=== PATIENT | male | born 1950 | race Caucasian/White ===

== ENCOUNTER 2016-05-23 07:24 | Day surgery (SDC) | payer MEDICARE ==
[~2016-05-23 07:24] MED LIST: ACETAMINOPHEN WITH CODEINE 1 EACH TABLET PO PRN; GENTAMICIN SULFATE 80 MG in DEXTROSE 5 % IN WATER 100 ML IV PRN; RINGERS SOLUTION,LACTATED 1,000 ML IV PRN; metroNIDAZOLE/SODIUM CHLORIDE 100 ML IV PRN
--- OUTSIDE RECORDS SUMMARY | 2016-05-23 07:29 | XMS REPORT | Continuity of Care Document ---
:1950 Author Organization [facility] ([facility]) Address [address] [place] [address] Phone [phone] Care Team Providers Name Role Phone [facility] Primary Care Provider [phone] Source Comments This disclosure is being made pursuant to the Care Everywhere program, applicable federal and state laws, and may not contain all informaitonavailable regarding this patient.[facility] ([facility]) Active Allergies and Adverse Reactions No Known Allergies Current Medications Prescription Sig. Disp. Refills Start Date End Date Status albuterol 90 Use 2 Puffs by 1 Inhaler 6 10/27/2012 Active mcg/Actuation inhalation every 6 inhaler hours as needed. Indications: BRONCHOSPASM PREVENTION beclomethasone Use 1 Puff by 1 Inhaler 5 10/27/2012 Active (QVAR) 80 inhalation 2 times mcg/Actuation daily. Indications: inhaler bronchospasm traMADol 50 mg Take 1 Tab by mouth 4 120 Tab 3 10/27/2012 Active tablet times daily as needed. Indications: PAIN famotidine 40 mg Take 1 Tab by mouth 60 Tab 6 10/27/2012 Active tablet at bedtime. Indications: REFLUX ESOPHAGITIS lisinopril 20 mg Take 1.5 Tabs by 90 Tab 3 10/27/2012 Active tablet mouth daily. Indications: HYPERTENSION cyclobenzaprine 10 Take 1 Tab by mouth 60 Tab 1 10/27/2012 Active mg tablet daily as needed. Indications: chronic LBP HYDROcodone-acetamin Take 1-2 Tabs by 20 Tab 0 11/23/2012 Active ophen 5-325 mg per mouth every 4 hours tablet as needed. Indications: PAIN traZODone PO Take by mouth. Active finasteride 5 mg Take 1 Tab by mouth 30 Tab 11 03/31/2013 Active tablet at bedtime. Indications: BENIGN PROSTATIC HYPERTROPHY omeprazole 40 mg Take 1 Cap by mouth 30 Cap 3 04/01/2013 Active extended release daily. Indications: capsule GASTROESOPHAGEAL REFLUX tamsulosin 0.4 mg ER Take 1 Cap by mouth 30 Cap 11 04/17/2014 Active capsule at bedtime. Indications: UROLITHIASIS finasteride 5 mg Take 1 Tab (5 mg 30 Tab 11 08/15/2014 Active tablet total) by mouth daily Active Problems Problem Noted Date Elevated PSA 03/31/2013 BPH (benign prostatic hypertrophy) 03/31/2013 Elevated prostate specific antigen (PSA) 11/01/2012 Ladd's esophagus with high grade dysplasia 11/10/2011 GERD (gastroesophageal reflux disease) 08/18/2011 Constipation 08/18/2011 Chronic low back pain 08/18/2011 Essential hypertension 06/10/2011 Tobacco abuse 06/10/2011 Cellulitis of foot 06/08/2011 Obesity (BMI 30-39.9) 06/08/2011 Immunizations Name Dates Previously Given Next Due Influenza, PF 11/20/2011 Tdap 06/18/2011 Social History Tobacco Use Types Packs/Day Years Used Date Current Every Day Smoker Cigarettes 1 20 Smokeless Tobacco: Former User Chew Quit: 06/17/2006 Tobacco Cessation:Counseling Given: Yes Comments:chewed 1/4 can a day x 30yrs Alcohol Use Drinks/Week oz/Week Comments No Last Filed Vital Signs Vital Sign Reading Time Taken Blood Pressure 126/83 06/19/2014 11:07 AM CDT Pulse 68 06/19/2014 10:13 AM CDT Temperature 36.5 C (97.7 F) 06/19/2014 10:13 AM CDT Respiratory Rate 18 06/19/2014 11:07 AM CDT Height 1.76 m (5' 9.29") 11/01/2012 9:23 AM CDT Weight 103.511 kg (228 lb 3.2 oz) 11/01/2012 9:23 AM CDT Body Mass Index 33.42 11/01/2012 9:23 AM CDT Oxygen Saturation 95% 06/19/2014 11:07 AM CDT Plan of Care Patient Goal Type Goal Lifestyle Quit smoking Health Maintenance Due Date Last Done Comments HCV Screening 1950 Hepatitis B Vaccine (1 of 3 - 1950 Primary Series) FOBT Colon Cancer Screening 07/14/1999 Sigmoidoscopy Colon Cancer 07/14/1999 Screening Zoster Vaccine 2009 Pneumococcal Vaccine (1 of 2 2014 - PCV13) Prostate Cancer Screening 08/15/2014 08/15/2013, Additional history exists 03/31/2013, 11/01/2012 Influenza Vaccine: Seasonal 09/17/2015 11/20/2011 (#1) Lipid Disorder Screening 10/27/2017 10/27/2012, 06/18/2011 Td Vaccine 06/17/2021 06/18/2011 Colonoscopy 10/20/2021 10/21/2011 Tdap Vaccine Completed 06/18/2011 Results from Last 3 Months Not on file
--- OUTSIDE RECORDS SUMMARY | 2016-05-23 07:30 | XMS REPORT | Summary of Care ---
:1950 Author Organization [facility] Address [address] [place] [phone]- Care Team Providers Name Role Phone Giles Moyer Primary Care Physician Encounter Date(s): 04/14/16 - 04/14/[address] [id number] Discharge Disposition: 01 Discharged to Home or Self Care Attending Physician: Flako Dominguez NP Admitting Physician: Flako Dominguez NP Vital Signs No data available for this section Problem List Condition Effective Dates Status Health Status Informant Benign hypertension(Confirmed) Active Lumbar radiculopathy(Confirmed) Active Lumbosacral spine Active instability(Confirmed) Lumbar spinal stenosis(Confirmed) Active Spondylolisthesis(Confirmed) Active Allergies, Adverse Reactions, Alerts No Known Medication Allergies Medications amLODIPine 10 mg oral tablet 1 tab(s), Oral, Daily, 0 Refill(s), Start Date: 12/05/15 14:18:00 CDT Start Date: 12/05/15 Status: Orderedatorvastatin 20 mg oral tablet 1 tab(s), Oral, Daily, 0 Refill(s), Start Date: 12/05/15 14:18:00 CDT Start Date: 12/05/15 Status: Orderedfinasteride 5 mg oral tablet 1 tab(s), Oral, Daily, # 30 tab(s), 0 Refill(s), Start Date: 02/06/16 13:36:00 COPYRIGHT MANAGER Start Date: 02/06/16 Status: Orderedgabapentin 300 mg oral capsule 1 cap(s), Oral, TID, # 90 cap(s), 0 Refill(s), Start Date: 12/05/15 15:21:00 CDT , Pharmacy: [place], [place] Start Date: 12/05/15 Stop Date: 02/22/16 Status: CompletedHYDROcodone-acetaminophen 5mg-325mg oral tablet 1 tab(s), Oral, q6hr interval, 0 Refill(s) Start Date: 12/05/15 Status: Orderedlisinopril 40 mg oral tablet 1 tab(s), Oral, Daily, 0 Refill(s), Start Date: 12/05/15 14:19:00 CDT Start Date: 12/05/15 Status: Orderedomeprazole 20 mg oral delayed release capsule 1 cap(s), Oral, Daily, 0 Refill(s), Start Date: 12/05/15 14:18:00 CDT Start Date: 12/05/15 Status: Orderedoxycodone-acetaminophen 5mg-325mg oral tablet See Instructions, 1 tab(s) Oral q4-6hr interval Max 7 per day, # 90 tab(s), 0 Refill(s), Start Date: 04/09/16 9:33:00 COPYRIGHT MANAGER, Pharmacy: [place], [place] Special Instructions: 1 tab(s) Oral q4-6hr interval Max 7 per day Start Date: 04/09/16 Status: Orderedoxycodone-acetaminophen 5mg-325mg oral tablet See Instructions, 1 tab(s) Oral q4-6hr interval Max 7 per day, # 90 tab(s), 0 Refill(s), Start Date: 03/28/16 8:45:00 COPYRIGHT MANAGER, Pharmacy: [place], [place] Special Instructions: 1 tab(s) Oral q4-6hr interval Max 7 per day Start Date: 03/28/16 Stop Date: 04/09/16 Status: Completed Results Patient Viewable Results Most recent to oldest [Reference Range]: 1 Sed Rate [0-20 mm/hr] 42 mm/hr *HI* (04/14/16 11:43 AM) C Reactive Protein [0.0-0.4 mg/dL] 1.2 mg/dL *HI* (04/14/16 11:43 AM) Immunizations No data available for this section Procedures Procedure Date Related Diagnosis Body Site Fusion Lumbar Anterior and Posterior (SCIP)1 03/25/16 Colonoscopy EGD Teeth Extraction 1auto-populated from documented surgical case Social History No data available for this section Assessment and Plan No data available for this section
--- OUTSIDE RECORDS SUMMARY | 2016-05-23 07:30 | XMS REPORT | Summary of Care ---
:1950 Author Organization [facility] Address [address] [place] [address] Care Team Providers Name Role Phone Giles Moyer Primary Care Physician Encounter Date(s): 04/14/16 - 04/14/16 [facility] [address]aria Gonzalez, [address] [place], [place] [address] Discharge Disposition: 01 Discharged to Home or Self Care Attending Physician: Flako Dominguez NP Referring Physician: Luciano Cyr MD Vital Signs Most recent to oldest [Reference Range]: 1 Peripheral Pulse Rate [60-100 bpm] 71 bpm (04/14/16 11:07 AM) Blood Pressure [90-130/60-90 mmHg] 164/96mmHg *HI* (04/14/16 11:07 AM) Mean Arterial Pressure, Cuff 119 mmHg (04/14/16 11:07 AM) Most recent to oldest [Reference Range]: 1 Height/Length Measured 175.8 cm (04/14/16 11:07 AM) Weight Dosing 101.50 kg1 (04/14/16 11:19 AM) Weight Measured 101.5 kg (04/14/16 11:07 AM) BSA Measured 2.17 m2 (04/14/16 11:07 AM) Body Mass Index Measured 32.84 kg/m2 (04/14/16 11:07 AM) 1Result Comment: This result was because the dosing weight was either not entered or it is>30 days old. This result is based off: Weight Measured April 14, 2016 11:07:00 ENVIRONMENTAL SERVICES SPECIALIST by Bong Ortega Technical Sales Advisor Problem List Condition Effective Dates Status Health [...] tab(s), 0 Refill(s), Start Date: 02/06/16 13:36:00 ENVIRONMENTAL SERVICES SPECIALIST Start Date: 02/06/16 Status: Orderedgabapentin 300 mg oral capsule 1 cap(s), Oral, TID, # 90 cap(s), 0 Refill(s), Start Date: 12/05/15 15:21:00 CDT , Pharmacy: [place], [place] Start Date: 12/05/15 Stop Date: 02/22/16 [...] tab(s), 0 Refill(s), Start Date: 04/09/16 9:33:00 ENVIRONMENTAL SERVICES SPECIALIST, Pharmacy: [place], [place] Special Instructions: 1 tab(s) Oral q4-6hr interval Max 7 per day Start Date: 04/09/16 Status: Orderedoxycodone-acetaminophen 5mg-325mg oral tablet See Instructions, 1 tab(s) Oral q4-6hr interval Max 7 per day, # 90 tab(s), 0 Refill(s), Start Date: 03/28/16 8:45:00 ENVIRONMENTAL SERVICES SPECIALIST, Pharmacy: [facility] [place], [place] Special Instructions: 1 tab(s) Oral q4-6hr interval Max 7 per day Start Date: 03/28/16 Stop Date: 04/09/16 Status: Completed Results No data available for this section Immunizations No data available for this section Procedures Procedure Date Related Diagnosis Body Site Fusion Lumbar Anterior and Posterior (SCIP)1 03/25/16 Colonoscopy EGD Teeth Extraction 1auto-populated from documented surgical case Social History No data available for this section Assessment and Plan No data available for this section
--- OUTSIDE RECORDS SUMMARY | 2016-05-23 07:30 | XMS REPORT | Summary of Care ---
:1950 Author Organization [facility] Address [address] [place] [phone]- Care Team Providers Name Role Phone Giles Moyer Primary Care Physician Encounter Date(s): 03/13/16 - 03/13/[address] [address]- [facility] Discharge Disposition: 01 Discharged to Home or Self Care Attending Physician: Luciano Cyr MD Admitting Physician: Luciano Cyr MD Vital Signs Most recent to oldest [Reference Range]: 1 Height/Length Estimated 175.8 cm (03/10/16 2:23 PM) Weight Estimated 97.5 kg (03/10/16 2:23 PM) Problem List Condition Effective Dates Status Health [...] tab(s), 0 Refill(s), Start Date: 02/06/16 13:36:00 SLOT SHIFT SUPERVISOR Start Date: 02/06/16 Status: Orderedgabapentin 300 mg oral capsule 1 cap(s), Oral, TID, # 90 cap(s), 0 Refill(s), Start Date: 12/05/15 15:21:00 CDT , Pharmacy: [place], [place] Start Date: 12/05/15 Stop Date: 02/22/16 [...] 12/05/15 14:18:00 CDT Start Date: 12/05/15 Status: Ordered Results Patient Viewable Results Most recent to oldest [Reference Range]: 1 WBC [4.8-10.8 thou/mm3] 9.3 thou/mm3 (03/13/16 8:15 AM) RBC [4.60-6.00 Mil/mm3] 4.89 Mil/mm3 (03/13/16 8:15 AM) Hgb [14.0-18.0 g/dL] 15.3 g/dL (03/13/16 8:15 AM) Hct [42.0-52.0 %] 43.7 % (03/13/16 8:15 AM) MCV [80.0-94.0 fL] 89.4 fL (03/13/16 8:15 AM) MCH [25.0-38.0 pg/cell] 31.3 pg/cell (03/13/16 8:15 AM) MCHC [31.0-37.0 g/dL] 35.0 g/dL (03/13/16 8:15 AM) RDW [1.0-48.0 fL] 44.7 fL (03/13/16 8:15 AM) Platelet [130-400 thou/mm3] 312 thou/mm3 (03/13/16 8:15 AM) Neutrophils % Auto [50.0-75.0 %] 59.8 % (03/13/16 8:15 AM) Immature Granulocyte Auto [0.1-2.0 %] 0.2 % (03/13/16 8:15 AM) Lymphocytes % Auto [15.0-41.0 %] 29.6 % (03/13/16 8:15 AM) Monocytes % Auto [2.0-10.0 %] 8.1 % (03/13/16 8:15 AM) Eosinophils % Auto [0.0-6.0 %] 2.1 % (03/13/16 8:15 AM) Basophil % Auto [0.0-1.0 %] 0.2 % (03/13/16 8:15 AM) Neutrophils Absolute [1.5-5.9 thou/mm3] 5.6 thou/mm3 (03/13/16 8:15 AM) Immature Gran Absolute [0.01-0.03 thou/mm3] 0.02 thou/mm3 (03/13/16 8:15 AM) Lymphocytes Absolute [1.5-4.0 thou/mm3] 2.8 thou/mm3 (03/13/16 8:15 AM) Monocytes Absolute [0.0-0.9 thou/mm3] 0.8 thou/mm3 (03/13/16 8:15 AM) Eosinophil Absolute [0.0-0.7 thou/mm3] 0.2 thou/mm3 (03/13/16 8:15 AM) Basophil Absolute [0.0-0.2 thou/mm3] 0.0 thou/mm3 (03/13/16 8:15 AM) Sodium Lvl [135-144 mEq/L] 143 mEq/L (03/13/16 8:15 AM) Potassium Lvl [3.3-4.8 mEq/L] 4.2 mEq/L (03/13/16 8:15 AM) Chloride Lvl [98-107 mEq/L] 103 mEq/L (03/13/16 8:15 AM) Bicarbonate Lvl [22-30 mmol/L] 28 mmol/L (03/13/16 8:15 AM) Anion Gap [10.0-20.0] 16.2 (03/13/16 8:15 AM) Glucose Lvl [70-108 mg/dL] 94 mg/dL (03/13/16 8:15 AM) BUN [7-21 mg/dL] 18 mg/dL (03/13/16 8:15 AM) Creatinine Lvl [0.50-1.20 mg/dL] 0.79 mg/dL (03/13/16 8:15 AM) BUN/Creat Ratio 22.8 *NA* (03/13/16 8:15 AM) eGFR AA [>=60] >60 (03/13/16 8:15 AM) eGFR MARIA E [>=60] >60 (03/13/16 8:15 AM) Calcium Lvl [8.6-10.2 mg/dL] 9.0 mg/dL (03/13/16 8:15 AM) Total Protein [6.4-8.3 g/dL] 6.8 g/dL (03/13/16 8:15 AM) Albumin Lvl [3.5-5.2 g/dL] 4.3 g/dL (03/13/16 8:15 AM) Globulin 2.5 *NA* (03/13/16 8:15 AM) A/G Ratio [0.9-1.8] 1.7 (03/13/16 8:15 AM) Bilirubin Total [0.1-1.0 mg/dL] 1.2 mg/dL *HI* (03/13/16 8:15 AM) Alkaline Phosphatase [39-129 unit/L] 46 unit/L (03/13/16 8:15 AM) AST [0-39 unit/L] 19 unit/L (03/13/16 8:15 AM) ALT [0-40 unit/L] 17 unit/L (03/13/16 8:15 AM) Estimated Creatinine Clearance 109.45 mL/min (03/13/16 8:54 AM) ABO/Rh A POS *Unknown* (03/13/16 8:15 AM) Antibody Screen Negative ABSC (03/13/16 8:15 AM) Microbiology Reports TEST:MRSA Screen STATUS:Auth (Verified) BODY SITE: SOURCE:Nares COLLECTED DATE/TIME:03/13/16 7:20 AMFINAL REPORTNegative for MRSA by PCR Immunizations No data available for this section Procedures Procedure Date Related Diagnosis Body Site Colonoscopy EGD Teeth Extraction Social History No data available for this section Assessment and Plan No data available for this section
--- OUTSIDE RECORDS SUMMARY | 2016-05-23 07:30 | XMS REPORT | Summary of Care ---
:1950 Author Organization [facility] Address [facility] [place] [address]- Care Team Providers Name Role Phone Giles Moyer Primary Care Physician Encounter Date(s): 03/25/16 - 03/28/16 [facility] [address] [place] [phone] [facility] [place] Discharge Diagnosis: Lumbosacral spine instability Discharge Diagnosis: Lumbar spinal stenosis Discharge Disposition: 01 Discharged to Home or Self Care Attending Physician: Luciano Cyr MD Admitting Physician: Luciano Cyr MD Vital Signs Most recent to oldest 1 2 3 [Reference Range]: Temperature Temporal Artery 36.6 DegC 36.5 DegC 36.8 DegC [36-38 DegC] (03/28/16 12:00 PM) (03/28/16 8:00 AM) (03/28/16 4:00 AM) Apical Heart Rate [60-100 73 bpm 81 bpm 82 bpm bpm] (03/27/16 7:25 AM) (03/26/16 11:00 AM) (03/26/16 8:00 AM) Heart Rate Monitored [60-100 82 bpm 88 bpm 82 bpm bpm] (03/28/16 12:00 PM) (03/28/16 8:00 AM) (03/28/16 4:00 AM) Respiratory Rate [12-20 18 br/min 16 br/min 18 br/min br/min] (03/28/16 12:00 PM) (03/28/16 11:57 AM) (03/28/16 10:29 AM) SpO2 99 % 100 % 96 % (03/28/16 12:00 PM) (03/28/16 8:00 AM) (03/28/16 4:00 AM) SpO2 Location Right hand Right hand Right hand (03/28/16 12:00 PM) (03/28/16 8:00 AM) (03/28/16 4:00 AM) Blood Pressure [90-130/60-90 122/68mmHg 132/59mmHg mmHg] (03/27/16 7:25 AM) *HI* (03/26/16 8:00 AM) Mean Arterial Pressure, Cuff 83 mmHg (03/26/16 8:00 AM) Blood Pressure [90-130/60-90 111/67mmHg 99/65mmHg 146/32bkGu0 mmHg] (03/28/16 12:00 PM) (03/28/16 8:00 AM) *HI* (03/28/16 4:00 AM) Blood Pressure Location Right arm Right arm Right arm (03/28/16 12:00 PM) (03/28/16 8:00 AM) (03/28/16 4:00 AM) Most recent to oldest [Reference Range]: 1 2 3 Height/Length Measured 175.8 cm 175.8 cm (03/25/16 1:00 PM) (03/25/16 6:03 AM) Weight Dosing 101.5 kg 101.5 kg (03/25/16 1:00 PM) (03/25/16 6:03 AM) Weight Measured 101.5 kg 101.5 kg (03/25/16 1:00 PM) (03/25/16 6:03 AM) BSA Measured 2.17 m2 2.17 m2 (03/25/16 1:00 PM) (03/25/16 6:03 AM) Body Mass Index Measured 32.84 kg/m2 32.84 kg/m2 (03/25/16 1:00 PM) (03/25/16 6:03 AM) 1Result Comment: notfiied Soledad Problem List Condition Effective Dates Status Health [...] tab(s), 0 Refill(s), Start Date: 02/06/16 13:36:00 TRANSMISSION SUPERVISOR Start Date: 02/06/16 Status: Orderedgabapentin 300 mg oral capsule 1 cap(s), Oral, TID, # 90 cap(s), 0 Refill(s), Start Date: 12/05/15 15:21:00 CDT , Pharmacy: [place], [place] Start Date: 12/05/15 Stop Date: 02/22/16 [...] tab(s), 0 Refill(s), Start Date: 03/28/16 8:45:00 TRANSMISSION SUPERVISOR, Pharmacy: [place], [place] Special Instructions: 1 tab(s) Oral q4-6hr interval Max 7 per day Start Date: 03/28/16 Status: Ordered Results Patient Viewable Results Most recent to oldest 1 2 3 [Reference Range]: AN - Fi O2 96 % % 95 % % 93 % % (03/25/16 11:00 AM) (03/25/16 10:55 AM) (03/25/16 10:50 AM) Estimated Creatinine Clearance 108.39 mL/min (03/25/16 6:07 AM) ABO/Rh A POS *Unknown* (03/25/16 6:24 AM) Antibody Screen Negative ABSC (03/25/16 6:24 AM) Immunizations No data available for this section Procedures Procedure Date Related Diagnosis Body Site Fusion Lumbar Anterior and Posterior (SCIP)1 03/25/16 Colonoscopy EGD Teeth Extraction 1auto-populated from documented surgical case Social History No data available for this section Assessment and Plan No data available for this section
[2016-05-23] MEDS ORDERED: RINGERS SOLUTION,LACTATED 1,000 ML IV ONE (07:55)
[2016-05-23] MEDS ORDERED: ALBUTEROL SULFATE 2.5 MG/3 ML VIAL.NEB IH ONE (08:18)
[2016-05-23 10:05] VITALS: BP 124/68
[2016-05-23] MEDS ORDERED: oxyCODONE HCL/ACETAMINOPHEN 1 TAB TABLET PO PRN (10:33)
== END 2016-05-23 07:25 | disposition home or self-care (01) ==
LOC: AMB 07:24
PROVIDERS: ATTEND Urology
PROC: 0V903ZX Drainage of Prostate, Percutaneous Approach, Diagnostic (ICD-10-PCS; principal; 2016-05-23 08:30)
DX: C61 Malignant neoplasm of prostate (principal); N41.9 Inflammatory disease of prostate, unspecified; I10 Essential (primary) hypertension; E66.9 Obesity, unspecified; Z68.33 Body mass index [BMI] 33.0-33.9, adult; Z87.891 Personal history of nicotine dependence